=== PATIENT | male | born 1975 | race Caucasian/White ===

== ENCOUNTER 2017-07-09 23:33 | Emergency (ER) | payer OTHER ==
[2017-07-10] MEDS ORDERED: BUPIVACAINE HCL 50 ML VIAL IJ ONE (00:02)
[2017-07-10] MEDS ORDERED: IBUPROFEN 600 MG TABLET PO ONE (00:02)
[2017-07-10] MEDS ORDERED: IBUPROFEN 600 MG TABLET ONE (00:05)
[2017-07-10] MEDS ORDERED: AMOXICILLIN TRIHYDRATE 250 MG CAPSULE PO ONE (00:17)
[2017-07-10] MEDS ORDERED: AMOXICILLIN TRIHYDRATE 250 MG CAPSULE ONE (00:21)
[2017-07-10] MEDS ORDERED: HYDROcodone/ACETAMINOPHEN 1 EACH TABLET ONE (00:21)
[2017-07-10] MEDS ORDERED: HYDROcodone/ACETAMINOPHEN 1 EACH TABLET PO ONE (00:21)
--- NOTE | 2017-07-10 00:23 | ERNOTE ---
ENT HPI Time Seen by Provider: 07/10/17 00:01 - Immun/Allergies/Home Medications Immunizations: IMMUNIZATION HX Immunizations Up to Date Yes History of Influenza Vaccine No Hx Pneumococcal Vaccination No Allergies/Adverse Reactions: Allergies Allergy/AdvReac Type Severity Reaction Status Date / Time No Known Allergies Allergy Verified 11/13/15 20:39 Home Medications: HOME MEDICATIONS Cephalexin Monohydrate [Keflex] 500 mg PO QID #28 capsule 11/13/15 [Last Taken Unknown] Ibuprofen [Motrin] 800 mg PO TID PRN 11/13/15 [Last Taken 11/13/15] Amoxicillin Trihydrate [Amoxil] 500 mg PO Q6H #40 capsule 07/10/17 [Last Taken Unknown] HYDROcodone/ACETAMINOPHEN [[place] 5-325] 1 each PO Q6H PRN #4 tablet 07/10/17 [ Last Taken Unknown] - History of Present Illness Narrative: This is a 41-year-old male who presents to the emergency department at midnight complaining of left-sided dental pain. The patient states that he has competent , didn't look assistance for dental care, but he has not yet received his card. The patient says that he has had "a horrible headache, horrible dental pain, and is having trouble sleeping because of the pain" the symptoms haven't going on for 2 weeks. The patient denies any recent trauma to the teeth. He denies any fever or chills. He denies any nausea or vomiting. He denies any recent head injury. The patient says that he has had similar symptoms in the past when he had an abscessed tooth. The patient freely admits that he drinks a great deal of soda pop. The patient has been taking ibuprofen as well as Ambusol without much success. Severity: Present: severe Associated Symptoms - ENT: Reports: tooth pain, headache. Denies: fever, malaise, cough, voice change, change in hearing, ear drainage, trauma Review of Systems - Review of Systems Constitutional: Present: no symptoms reported EYE: Present: no symptoms reported ENT: Present: ear pain, other - patient reports left ear pain Respiratory: Present: other - patient reports occasional coughing, especially in the morning. The patient is a smoker. Cardiology: Present: no symptoms reported Gastrointestinal/Abdominal: Present: no symptoms reported Genitourinary: Present: no symptoms reported Musculoskeletal: Present: no symptoms reported Skin: Present: no symptoms reported Neurological: Present: no symptoms reported Endocrine: Present: no symptoms reported Hematologic/Lymphatic: Present: no symptoms reported Psych: Present: no symptoms reported All Other Systems: All systems neg except as marked - Patient's Past Medical History Patient History - Medical: No pertinent hx Patient History - Cardiac/Respiratory: No pertinent hx Patient History - Cancer: No Hx of Cancer Patient History - Surgical Procedures: Other Patient History - Other: None - Family History Mother Family History - Medical: Father Family History - Medical: Diabetes Type 2 - Social History Living Situations: significant other Abuse History: No History of abuse Psych History: No pertinent hx Does anyone smoke in the home?: Yes Smoking Status: Current every day smoker Have you smoked in the past 12 months: Yes Do you dip or chew tobacco: No Alcohol Use: occasionally Drug Use: none - Immunizations Immunizations Up to Date: Yes Hx Pneumococcal Vaccination: No History of Influenza Vaccine: No Physical Exam - Physical Exam General Appearance: Present: wd/wn, alert, no apparent distress Head Exam: Present: normal inspection, no evidence of injury Eye Exam: Normal inspection: bilateral, PERRL: bilateral, EOMI: bilateral Ears, Nose, Throat: Present: normal ENT inspection, other - patient has bilateral normal tympanic membranes which are pearly norris and nonbulging. Patient has multiple dental caries in the classic presentation of enamel loss near the gumline is seen with excessive soda pop intake. There is no specific tooth which is exquisitely tender to percussion. There is no swelling of the gum. I see no fluctuance. Neck: Present: normal inspection, nontender Respiratory: Present: no respiratory distress, normal breath sounds, no accessory muscle use, chest nontender, lungs clear Cardiovascular/Chest: Present: regular rate, rhythm, no murmur, normal peripheral pulses Gastrointestinal/Abdominal: Present: normal bowel sounds, nontender, nondistended, no organomegaly Back Exam: Present: normal inspection, normal range of motion, no vertebral tenderness Extremity Exam: Present: normal inspection, normal range of motion Neurological Exam: Present: alert, oriented Skin Exam: Present: normal color, warm/dry Lymphatic Exam: Present: no adenopathy ED Progress - Vital Signs Vital Signs: Vital Signs 07/09/17 23:38 Temperature 37.0 C Pulse Rate 63 Respiratory 14 Rate Blood Pressure 137/93 O2 Sat by Pulse 98 Oximetry - Progress/Reassessment Chief Complaint: Dental Problem Procedures Complications: other - 10 mL of a 1:1 solution of 0.5% Marcaine and 1% lidocaine with epinephrine was prepared. 8 mL was injected as a left sided inferior orbital nerve block. Patient tolerated procedure well. The patient states that his pain is 100% gone. I did then inject the remaining 2 mL. Patient tolerated procedure well. No complaints at this time. No complications. Departure Clinical Impression: Dentalgia - Departure Disposition: Home self-care Condition: Stable Instructions: Dental Caries Additional Instructions: As we discussed, you have extremely poor dentition. These teeth are beyond saving. He'll need to see a dentist to get your teeth most likely removed. Try to avoid drinking soda pop. This will accelerate the rate of loss of your teeth. I want you to take ibuprofen, take 3 pills which is 600 mg every 6 hours. Take this with the feeling like it is helping or not. I have given a prescription for amoxicillin. This will help if there is any infection. I have also given a prescription for 4 tablets of hydrocodone. This is a strong narcotic. Do not drive or operate machinery while taking this. Call your dentist and set up an appointment. Due this regardless of whether you have to pay for it herself. Certainly if he develop new or worrisome symptoms he should return to the emergency department Prescriptions: Amoxicillin Trihydrate [Amoxil] 500 mg PO Q6H #40 capsule HYDROcodone/ACETAMINOPHEN [[place] 5-325] 1 each PO Q6H PRN #4 tablet PRN Reason: Pain
[2017-07-10 16:33] VITALS: BP 124/84
== END 2017-07-10 00:35 | disposition home or self-care (01) ==
LOC: ER 23:33
DX: K08.89 Other specified disorders of teeth and supporting structures (principal)

== ENCOUNTER 2018-08-02 01:53 | Observation (INO) ==
--- NOTE | 2018-08-02 02:28 | ERNOTE ---
<Tomás Oh - Last Filed: 08/02/18 08:01> Abdominal HPI - Narrative Date of Service: 08/02/18 - General Chief Complaint: Constipation Time Seen by Provider: 08/02/18 02:10 Source: patient Exam Limitations: no limitations - Immun/Allergies/Home Medications Immunizatons: IMMUNIZATION HX Immunizations Up to Date Yes History of Influenza Vaccine No Hx Pneumococcal Vaccination No Allergies/Adverse Reactions: Allergies No Known Allergies Allergy (Verified 08/02/18 02:00) Home Medications: HOME MEDICATIONS Cyclobenzaprine HCl 10 mg PO TID PRN 7 Days #21 tab 08/01/18 [Last Taken Unknown ] Naproxen Sodium 550 mg PO BID #28 tab 08/01/18 [Last Taken Unknown] - History of Present Illness Narrative: This patient is a 42-year-old male who is here complaining of back and stomach pain. He said that his symptoms began 5 days ago. The entire abdomen is sore. He says it feels like the muscles are sore. He describes the pain as cramping, sharp, and pain. He says it feels like it wants to explode. Nothing makes it worse. It is better with lying down. He denies fever. He has not had a bowel movement for 5 days, except for a small amount yesterday. He does not remember passing gas for 2 days. He is nauseated. He threw up one and 2 hours ago. He denies prior abdominal surgery. He had similar symptoms about 5 years ago and said that his intestines kinked and locked up. He said that he had to have a tube in his nose. He had a cheeseburger and to make chicken sandwiches about 6 or 7 hours ago. His back has also been sore for 5 days. It is bilateral pain that he describes as sharp and increases with movement. He took 3 Advil when he woke up at 11. He denies bladder dysfunction. He has no radiation of the pain. He was seen in the emergency room today. He had a urinalysis done and was given a shot. He was prescribed medication but did not fill it because the pharmacy was closed. Date (Duration): 07/28/18 Timing: getting worse Quality: severe, cramping, sharpness Modifying Factors - (Improves): Present: rest Review of Systems - Review of Systems Constitutional: Present: weakness. Absent: fever, diaphoresis, weight loss EYE: Present: blurred vision. Absent: double vision ENT: Absent: ear pain, nose congestion, nasal drainage, sore throat Respiratory: Absent: shortness of breath, cough Cardiology: Absent: chest pain, palpitations, syncope Gastrointestinal/Abdominal: Present: nausea, vomiting, constipation, abdominal pain, eating less, drinking less, other. Absent: diarrhea Genitourinary: Absent: frequency, pain, dysuria, hematuria Musculoskeletal: Present: back pain, muscle pain, other - He has had right arm pain, especially when he sleeps on his back.. Absent: neck pain Skin: Absent: rash Neurological: Present: numbness - the fourth and fifth fingers of both hands get numb when he sleeps. Absent: anxiety, depressed, headache, dizziness/light- headedness, weakness Endocrine: Absent: intolerance to heat, intolerance to cold, unexplained weight gain, unexplained weight loss Hematologic/Lymphatic: Present: other - he has had no bleeding from anywhere Psych: Absent: anxiety, depressed Medical History (Last Reviewed 08/02/18 @ 02:41 by Tomás Oh MD) Small bowel obstruction Surgical History: Surgical History (Last Reviewed 08/02/18 @ 02:41 by Tomás Oh MD) none Family History: Family History (Last Reviewed 08/02/18 @ 02:41 by Tomás Oh MD) Father Skin cancer Diabetes Mother Hypertension Brother IBS (irritable bowel syndrome) Social History: Preferred Language Indian Do you have any hinduism or No cultural preference? Smoking Status Current every day smoker Abuse History No History of abuse Psych History No pertinent hx Alcohol Use occasionally Drug Use none Physical Exam - Physical Exam General Appearance: Present: wd/wn, alert, other - He appears to be uncomfortable. Head Exam: Present: normal inspection, no evidence of injury Eye Exam: Normal inspection: bilateral Ears, Nose, Throat: Present: normal ENT inspection, normal pharynx Neck: Present: normal inspection, nontender, supple. Absent: lymphadenopathy (R ), lymphadenopathy (L), thyromegaly Respiratory: Present: no respiratory distress, normal breath sounds, no accessory muscle use, lungs clear Cardiovascular/Chest: Present: regular rate, rhythm, no murmur Gastrointestinal/Abdominal: Present: normal bowel sounds, nondistended, tenderness - Diffusely., guarding - Diffusely.. Absent: rebound Rectal Exam: Present: normal rectal tone, tenderness, other - He had tenderness with exam. He has an active anal fissure. There is blood on the examining finger. There is no stool in the rectal vault. Back Exam: Present: normal inspection, normal range of motion, no CVA tenderness , no vertebral tenderness. Absent: muscle spasm Extremity Exam: Present: normal inspection, non-tender, normal range of motion, no edema Neurological Exam: Present: alert, normal mood/affect, no motor/sensory deficits Skin Exam: Present: normal color, warm/dry ED Progress - Date and Time Seen: Date and Time: 08/02/18 07:21 He is feeling better after the NG tube and pain medications. - Results and Orders Patient's Lab Results:: I have reviewed the patient's lab results. - Vital Signs Patient's Vital Signs:: I have reviewed the patient's vital signs. Vital Signs: Vital Signs 08/02/18 01:56 Temperature 36.6 C Pulse Rate 96 Respiratory Rate 16 Blood Pressure 143/96 H O2 Sat by Pulse Oximetry 98 - X-Ray X-Ray #1 X-Ray: abdomen - Distention of the bowels with lots of gas and stool. No free air noted. No air-fluid levels noted. Interpretation: Interp. by me X-Ray #2 X-Ray: chest Interpretation: Interp. by me - the NG tube appears to be in the stomach - Progress/Reassessment Chief Complaint: Constipation Progress:: Improved - Transfer of Care Physician Sign Out: Tomás Oh Brief History: He came in with severe abdominal pain and constipation. The x-ray showed lots of gas and stool. There was no stool in the rectal vault. A CT scan was ordered for further evaluation and is pending. Receiving Physician: Viridiana Schwarz Pending Results: CT/MRI results Expected Disposition: Admit Departure Clinical Impression: Ileus - Departure Disposition: Still a patient Condition: Stable <Viridiana Schwarz - Last Filed: 08/02/18 11:35> Abdominal HPI - Immun/Allergies/Home Medications Immunizatons: IMMUNIZATION HX Immunizations Up to Date Yes History of Influenza Vaccine No Hx Pneumococcal Vaccination No Medical History (Last Reviewed 08/02/18 @ 02:41 by Tomás Oh MD) Small bowel obstruction Surgical History: Surgical History (Last Reviewed 08/02/18 @ 02:41 by Tomás Oh MD) none Family History: Family History (Last Reviewed 08/02/18 @ 02:41 by Tomás Oh MD) Father Skin cancer Diabetes Mother Hypertension Brother IBS (irritable bowel syndrome) Social History: Preferred Language Indian Do you have any hinduism or No cultural preference? Smoking Status Current every day smoker Abuse History No History of abuse Psych History No pertinent hx Alcohol Use occasionally Drug Use none Physical Exam - Physical Exam General Appearance: Present: wd/wn, alert, no apparent distress Respiratory: Present: no respiratory distress, normal breath sounds, lungs clear Cardiovascular/Chest: Present: regular rate, rhythm, no murmur Gastrointestinal/Abdominal: Present: normal bowel sounds, nondistended, soft, tenderness - minimally throughout. Absent: guarding Neurological Exam: Present: alert, normal mood/affect Skin Exam: Present: normal color, warm/dry ED Progress - Results and Orders Patient's Lab Results:: I have reviewed the patient's lab results. - Vital Signs Patient's Vital Signs:: I have reviewed the patient's vital signs. Vital Signs: Vital Signs 08/02/18 01:56 08/02/18 05:00 08/02/18 05:39 Temperature 36.6 C Pulse Rate 96 87 77 Respiratory Rate 16 20 18 Blood Pressure 143/96 H 120/82 134/102 H O2 Sat by Pulse Oximetry 98 97 99 08/02/18 06:25 08/02/18 07:12 08/02/18 07:31 Temperature Pulse Rate 69 63 69 Respiratory Rate 18 12 12 Blood Pressure 124/82 127/83 113/92 H O2 Sat by Pulse Oximetry 100 99 97 08/02/18 08:00 Temperature Pulse Rate 74 Respiratory Rate 12 Blood Pressure 123/96 H O2 Sat by Pulse Oximetry 98 - CT/Ultrasound CT/Ultrasound Narrative: CT abdomen: 1. LARGE AMOUNT OF FECAL RETENTION IN THE PROXIMAL COLON. 2. NORMAL SMALL BOWEL. NO EVIDENCE FOR SMALL BOWEL OBSTRUCTION BY CT. FINDINGS ON PLAIN FILM HAVE EITHER RESOLVED OR WERE ARTIFACTUAL. 3. MILD FATTY INFILTRATION LIVER. 4. OTHERWISE NORMAL EXAM. - Progress/Reassessment Progress Note-Subjective: 08/02/18 08:26 pain controlled, patient is tolerating contrast, NG tube clamped 08/02/18 10:16 patient tolerated contrast ,pain controlled discussed CT results, no obstruction, large amount of stool and poor progress of contrast 08/02/18 10:38 patient vomited large amount of stomach content after clamping NG tube and taking few sips of Magnesium citrate 08/02/18 10:45 discussed with nelly De La Rosa to admit for observation for ileus
[2018-08-02 02:45] LABS: Hemoglobin 16.5 gm/dL (13.5-18.0); Mean Cell Volume 90.7 fl (78-100); Mean Corpuscular Hemoglobin 31.2 pg (27-31); Mean Corpuscular Hgb Conc 34.4 g/dl (32-36); Mean Platelet Volume 9.4 fl (8-11.3); Neutrophil % 70.1 % (42-75.0); Platelet Count 307 K/mm3 (150-450); Red Blood Count 5.29 M/mm3 (4.7-6.0); Red Cell Distribution Width 13.1 % (11.5-14.0); White Blood Count 12.8 K/mm3 (4.0-10.5)
[2018-08-02 02:56] LABS: Anion Gap 13.5 mmol/L (6.8-13.8); BUN/Creatinine Ratio 13.5 (9.0-21.6); Bilirubin, Total 0.6 mg/dL (0.0-1.1); Ca. Corrected For Albumin 9.1 mg/dL (8.4-10.2); Calcium * 9.4 mg/dL (7.9-10.9); Carbon Dioxide 27.9 mmol/L (24-32.6); Potassium 4.4 mmol/L (3.4-4.6); Total Protein 7.6 gm/dL (6.2-8.2)
[2018-08-02] MEDS ORDERED: HYDROmorphone HCL 1 MG/ML DISP.SYRIN ONE (04:42)
[2018-08-02] MEDS ORDERED: ONDANSETRON HCL/PF 2 MG/ML VIAL ONE ×2 (04:42→05:35)
[2018-08-02] MEDS ORDERED: NORMAL SALINE 1,000 ML IV PRN (04:47)
[2018-08-02] MEDS ORDERED: HYDROmorphone HCL 1 MG/ML DISP.SYRIN IV ONE (04:47)
[2018-08-02] MEDS ORDERED: ONDANSETRON HCL/PF 2 MG/ML VIAL IV ONE ×2 (04:47→05:36)
[2018-08-02] MEDS ORDERED: DIATRIZOATE MEGLUMINE, SODIUM 30 ML BTL ONE (07:16)
[2018-08-02] MEDS ORDERED: DIATRIZOATE MEGLUMINE, SODIUM 30 ML BTL PO ONE (07:17)
[2018-08-02 08:54] LABS: Urine Bilirubin Negative (NEGATIVE); Urine Blood Negative /ul (NEGATIVE); Urine Ketone Negative (NEGATIVE); Urine Nitrite Negative (NEGATIVE); Urine Protein Negative (NEGATIVE); Urine Specific Gravity >=1.030 SP.GR. (1.005-1.030); Urine Urobilinogen Normal (NORMAL)
[2018-08-02 09:06] LABS: Urine Appearance Clear (CLEAR); Urine Bacteria None Seen; Urine Color Yellow; Urine RBC None Seen /hpf (0-5); Urine WBC TRACE /hpf (0-5)
[2018-08-02 09:08] LABS: Cocaine Ur Negative (NEGATIVE); Urine Barbiturate Negative (NEGATIVE); Urine Benzodiazepines Negative (NEGATIVE); Urine PCP Negative (NEGATIVE); Urine THC Negative (NEGATIVE)
[2018-08-02 09:15] LABS: Urine Opiates Positive (NEGATIVE)
[2018-08-02] MEDS ORDERED: BISACODYL 5 MG TABLET.DR PO ONE (10:17)
[2018-08-02] MEDS ORDERED: MAGNESIUM CITRATE 300 ML BTL PO ONE (10:18)
[2018-08-02] MEDS ORDERED: BISACODYL 5 MG TABLET.DR ONE (10:19)
[2018-08-02] MEDS ORDERED: MAGNESIUM CITRATE 300 ML BTL ONE (10:20)
[2018-08-02] MEDS ORDERED: NORMAL SALINE 1,000 ML IV ONE (11:09)
[2018-08-02] MEDS ORDERED: BISACODYL 10 MG SUPP.RECT RC ONE (18:46)
[2018-08-02] MEDS ORDERED: SENNOSIDES/DOCUSATE SODIUM 1 TAB TABLET PO ONE (18:47)
--- NOTE | 2018-08-02 23:44 | HP ---
Chief Complaint - Chief Complaint Date of Service: 08/02/18 Time of Service: 19:00 Chief Complaint: Nausea and Vomiting History of Present Illness: Andrew is a 42 yo male that presents to the [facility] ER today with abdominal pain, nausea, and vomiting. He was seen this week in the er for back pain and given dilaudid. Over the last 24 hours his GI symptoms began to develop. He has not had a bowel movement for a few days. He reports passing gas. In the ER imaging showed evidence of ileus without bowel obstruction. No fever, chills, or blood in stool. Medical History (Last Updated 08/12/18 @ 10:13 by Tracy Rosas RN) Small bowel obstruction (Acute) Onset Date: ~2010 Ileus Onset Date: ~2016 Lip abrasion Onset Date: Unknown Surgical History: Surgical History (Last Updated 08/11/18 @ 11:03 by Aleah Medeiros RN) History of facial surgery (Acute) Onset Date: ~1994 [place] teeth removed Onset Date: Unknown none Family History: Family History (Last Reviewed 08/11/18 @ 11:03 by Aleah Medeiros RN) Father Skin cancer Diabetes Parkinsons disease S/P triple vessel bypass Myocardial infarction Mother Hypertension Schizophrenia simplex Brother IBS (irritable bowel syndrome) Schizophrenia simplex Social History: Patient Lives/Resources Home Utilized Occupation none Preferred Language Danish Do you have any anabaptism or No cultural preference? Smoking Status Current every day smoker Have you smoked in the past 12 Yes months Abuse History No History of abuse Psych History No pertinent hx Alcohol Use occasionally Drug Use none Review Of Systems (GEN) - Review of Systems Generalized/Overall Review: Absent: Weakness, Chills, Fever EENTM: Present: No Symptoms Reported Respiratory: Absent: Cough, Shortness of Breath Cardiac: Absent: Chest Pain, Palpitations Abdominal: Present: Nausea, Vomiting, Abdominal Pain, Constipation. Absent: Hematemesis, Diarrhea, Melena, Bright blood from rectum Genitourinary: Present: No Symptoms Reported Musculoskeletal: Present: No Symptoms Reported Neurological: Present: No Symptoms Reported Skin: Present: No Symptoms Reported Endocrine: Present: No Symptoms Reported Immunizations: IMMUNIZATION HX Immunizations Up to Date Yes History of Influenza Vaccine No Hx Pneumococcal Vaccination No Allergies/Adverse Reactions: Allergies Allergy/AdvReac Type Severity Reaction Status Date / Time No Known Allergies Allergy Verified 08/12/18 10:12 Home Medications: HOME MEDICATIONS Polyethylene Glycol 3350 [Miralax] 17 gm PO DAILY PRN #1 bottle 08/03/18 [Last Taken Unknown] naproxen sodium 550 mg tablet 550 mg PO BID PRN tab 08/12/18 [Last Taken Unknown] Exam - Exam Vital Signs: Vital Signs - Last Taken Temp 36.9 C 08/02/18 15:30 Pulse 62 08/02/18 15:30 Resp 18 08/02/18 15:30 BP 126/82 08/02/18 15:30 Pulse Ox 97 08/02/18 15:30 Constitutional: Present: Alert, Oriented x3, Cooperative, Other - NG tube in place ENT Exam: Present: hearing grossly normal Eye Exam: bilateral eye: normal inspection Respiratory: Present: lungs clear, normal breath sounds Cardiovascular/Chest: Present: regular rate, rhythm, no murmur Abdomen: Present: soft, nondistended, no rebound tenderness, no hepatospenomegaly, tender - diffuse tenderness, hypoactive Skin Exam: Present: normal color, warm/dry, no cyanosis Appearance: Present: appropriate appearance, appropriate insight Thoughts: Present: normal thought pattern, no apparent hallucination Diagnostic Studies: Abnormal Lab Results 08/02/18 08/02/18 08/02/18 Range/Units 02:40 02:40 08:45 WBC 12.8 H (4.0-10.5) K/mm3 MCH 31.2 H (27-31) pg Immature Gran % (Auto) 1.20 H (0.001-0.429) % Immature Gran # (Auto) 0.15 H (0.000-0.0310) K/mm3 Lymphocytes % 17.6 L (20-51) % Neutrophils # 9.0 H (1.3-6.0) K/mm3 Random Glucose 139 H (70-110) mg/dL Urine Opiates Screen Positive H (NEGATIVE) Laboratory Results WBC 12.8 K/mm3 (4.0-10.5) H 08/02/18 02:40 RBC 5.29 M/mm3 (4.7-6.0) 08/02/18 02:40 Hgb 16.5 gm/dL (13.5-18.0) 08/02/18 02:40 Hct 48.0 % (42.0-52.0) 08/02/18 02:40 MCV 90.7 fl (78-100) 08/02/18 02:40 MCH 31.2 pg (27-31) H 08/02/18 02:40 MCHC 34.4 g/dl (32-36) 08/02/18 02:40 RDW 13.1 % (11.5-14.0) 08/02/18 02:40 Plt Count 307 K/mm3 (150-450) 08/02/18 02:40 MPV 9.4 fl (8-11.3) 08/02/18 02:40 Immature Gran % (Auto) 1.20 % (0.001-0.429) H 08/02/18 02:40 Immature Gran # (Auto) 0.15 K/mm3 (0.000-0.0310) H 08/02/18 02:40 Neutrophils % 70.1 % (42-75.0) 08/02/18 02:40 Lymphocytes % 17.6 % (20-51) L 08/02/18 02:40 Monocytes % 8.1 % (0.0-9) 08/02/18 02:40 Eosinophils % 2.5 % (0.0-3.0) 08/02/18 02:40 Basophils % 0.5 % (0.0-1.0) 08/02/18 02:40 Nucleated RBC % 0.0 k/mm3 (0-1) 08/02/18 02:40 Neutrophils # 9.0 K/mm3 (1.3-6.0) H 08/02/18 02:40 Lymphocytes # 2.25 k/mm3 (1.5-3.5) 08/02/18 02:40 Monocytes # 1.0 k/mm3 (0.0-1.0) 08/02/18 02:40 Eosinophils # 0.3 k/mm3 (0.0-0.7) 08/02/18 02:40 Absolute Basophils 0.1 k/mm3 (0.0-0.1) 08/02/18 02:40 Sodium 138 mmol/L (132-142) 08/02/18 02:40 Plasma Sodium 139 mmol/L (130-142) 08/02/18 02:40 Potassium 4.4 mmol/L (3.4-4.6) D 08/02/18 02:40 Chloride 101 mmol/L (97-106) 08/02/18 02:40 Carbon Dioxide 27.9 mmol/L (24-32.6) 08/02/18 02:40 Anion Gap 13.5 mmol/L (6.8-13.8) 08/02/18 02:40 BUN 13 mg/dL (6-23) D 08/02/18 02:40 Creatinine 0.96 mg/dL (0.4-1.4) 08/02/18 02:40 Est GFR (Non-Af Amer) 91 mL/min (60-130) 08/02/18 02:40 BUN/Creatinine Ratio 13.5 (9.0-21.6) 08/02/18 02:40 Random Glucose 139 mg/dL (70-110) H 08/02/18 02:40 Calcium 9.4 mg/dL (7.9-10.9) 08/02/18 02:40 Calcium Adj for Albumin 9.1 mg/dL (8.4-10.2) 08/02/18 02:40 Total Bilirubin 0.6 mg/dL (0.0-1.1) 08/02/18 02:40 AST 43 U/L (0-48) 08/02/18 02:40 ALT 46 U/L (19-67) 08/02/18 02:40 Alkaline Phosphatase 89 U/L (50-170) 08/02/18 02:40 Total Protein 7.6 gm/dL (6.2-8.2) 08/02/18 02:40 Albumin 4.0 gm/dl (3.4-5.0) 08/02/18 02:40 Lipase 177 U/L (73-393) 08/02/18 02:40 Urine Color Yellow 08/02/18 08:45 Urine Appearance Clear (CLEAR) 08/02/18 08:45 Urine pH 6.0 pH (5.0-7.0) 08/02/18 08:45 Ur Specific [place] >=1.030 SP.GR. (1.005-1.030) 08/02/18 08:45 Urine Protein Negative mg/dL (NEGATIVE) 08/02/18 08:45 Urine Glucose (UA) Negative mg/dL (NEGATIVE) 08/02/18 08:45 Urine Ketones Negative mg/dL (NEGATIVE) 08/02/18 08:45 Urine Blood Negative /ul (NEGATIVE) 08/02/18 08:45 Urine Nitrate Negative (NEGATIVE) 08/02/18 08:45 Urine Bilirubin Negative mg/dl (NEGATIVE) 08/02/18 08:45 Urine Urobilinogen Normal EU/dl (NORMAL) 08/02/18 08:45 Ur Leukocyte Esterase Negative /ul (NEGATIVE) 08/02/18 08:45 Urine RBC None seen /hpf (0-5) 08/02/18 08:45 Urine WBC Trace /hpf (0-5) 08/02/18 08:45 Ur Epithelial Cells Trace /hpf (0-5) 08/02/18 08:45 Urine Bacteria None seen (NONE) 08/02/18 08:45 Urine Culture Comments No culture indicated 08/02/18 08:45 Urine Opiates Screen Positive (NEGATIVE) H 08/02/18 08:45 Barbiturate Screen Negative (NEGATIVE) 08/02/18 08:45 Ur Phencyclidine Scrn Negative (NEGATIVE) 08/02/18 08:45 Urine Amphetamine Negative (NEGATIVE) 08/02/18 08:45 U Benzodiazepines Scrn Negative (NEGATIVE) 08/02/18 08:45 Urine Cocaine Screen Negative (NEGATIVE) 08/02/18 08:45 Urine Marijuana (THC) Negative (NEGATIVE) 08/02/18 08:45 Assessment/Plan - Assessment/Plan (1) Ileus Assessment: Andrew is a 42 yo male with ileus based on symptoms and imaging. Suspect secondary to recent narcotic use for back pain. NG tube placed in the ER. Will give bowel rest with NPO status. Will give rectal suppository. Will admit to observation for now, but if this develops into a full bowel obstruction will need to admit to inpatient and he may be here for a longer course of treatment. Problem: Acute
[2018-08-03] MEDS: KETOROLAC TROMETHAMINE 30 MG/ML VIAL IV PRN ×2 (01:16→18:36)
[2018-08-03] MEDS: BENZOCAINE/MENTHOL 16 EACH BOX MM PRN ×2 (08:13→12:33)
--- NOTE | 2018-08-03 18:36 | DS ---
(1) Ileus Problem: Acute Description of Stay: Andrew is a 42 yo male admitted with ileus and stool retention. He was given NG tube, stool softeners, laxative, and a rectal suppository without much relieve. He was then given a fleet's enema which had good results. His nausea improved and his NG was clamped. He tolerated clamping his NG and was placed on a clear liquid diet which he tolerated. He was advanced to a regular diet, tolerated this, and was discharged to home. He will continue to take stool softeners at home and avoid narcotic pain medications as this was likely caused from dilaudid he had taken for back pain the other day. Procedures Performed: none Results and Findings: Lab Pending Results 08/02/18 02:40: WBC 12.8 H, RBC 5.29, Hgb 16.5, Hct 48.0, MCV 90.7, MCH 31.2 H, MCHC 34.4, RDW 13.1, Plt Count 307, MPV 9.4, Immature Gran % (Auto) 1.20 H, Immature Gran # (Auto) 0.15 H, Neutrophils % 70.1, Lymphocytes % 17.6 L, Monocytes % 8.1, Eosinophils % 2.5, Basophils % 0.5, Nucleated RBC % 0.0, Neutrophils # 9.0 H, Lymphocytes # 2.25, Monocytes # 1.0, Eosinophils # 0.3, Absolute Basophils 0.1 08/02/18 02:40: Sodium 138, Plasma Sodium 139, Potassium 4.4 D, Chloride 101, Carbon Dioxide 27.9, Anion Gap 13.5, BUN 13 D, Creatinine 0.96, Est GFR (Non- Af Amer) 91, BUN/Creatinine Ratio 13.5, Random Glucose 139 H, Calcium 9.4, Calcium Adj for Albumin 9.1, Total Bilirubin 0.6, AST 43, ALT 46, Alkaline Phosphatase 89, Total Protein 7.6, Albumin 4.0, Lipase 177 08/02/18 08:45: Urine Color Yellow, Urine Appearance Clear, Urine pH 6.0, Ur Specific [place] >=1.030, Urine Protein Negative, Urine Glucose (UA) Negative, Urine Ketones Negative, Urine Blood Negative, Urine Nitrate Negative, Urine Bilirubin Negative, Urine Urobilinogen Normal, Ur Leukocyte Esterase Negative, Urine RBC None seen, Urine WBC Trace, Ur Epithelial Cells Trace, Urine Bacteria None seen, Urine Culture Comments No culture indicated 08/02/18 08:45: Urine Opiates Screen Positive H, Barbiturate Screen Negative, Ur Phencyclidine Scrn Negative, Urine Amphetamine Negative, U Benzodiazepines Scrn Negative, Urine Cocaine Screen Negative, Urine Marijuana (THC) Negative Discharge Location: Home Disposition: Home self-care Condition: Good Discharge Activity: Activity as tolerated Discharge Diet: General/regular food Problem Oriented Discharge Instructions to Patient/Family: Ileus Additional Patient Instructions (free text): He may follow up with one of the new family practice physicians to establish. Take Miralax daily as needed to have a bowel movement at least every other day. Prescriptions (Any new or edited meds): Polyethylene Glycol 3350 [Miralax] 17 gm PO DAILY PRN #1 bottle PRN Reason: Constipation Complete Home Medications List: Complete Home Medication List: Cyclobenzaprine HCl 10 mg PO TID PRN 7 Days #21 tab 08/01/18 Naproxen Sodium 550 mg PO BID #28 tab 08/01/18 Polyethylene Glycol 3350 [Miralax] 17 gm PO DAILY PRN #1 bottle 08/03/18
[2018-08-03 18:58] VITALS: BP 116/78
== END 2018-08-03 19:20 | disposition home or self-care (01) ==
LOC: MS 01:53 → ER 01:53 → MS 11:37
PROVIDERS: ADMIT Family Medicine; ATTEND Family Medicine
DX: K56.7 Ileus, unspecified; K59.00 Constipation, unspecified; R11.2 Nausea with vomiting, unspecified; F17.210 Nicotine dependence, cigarettes, uncomplicated
CPT/HCPCS: 36415; 71010; 71045; 74019; 74020; 74177; 80053; 80307; 81001; 83690; 85025; 96361; 96374; 96375; 96376; 99285; G0378; G0479; J2405